=== PATIENT | female | born 1960 | race Caucasian/White ===

== ENCOUNTER → 2016-09-23 | Outpatient (CLI) | payer BC ==
[~2016-09-23] MED LIST: PENI-82 PO
--- NOTE | 2016-09-23 16:46 | MAMMOGRAPHY REPORT ---
BILATERAL DIGITAL SCREENING MAMMOGRAM TOMOSYNTHESIS WITH CAD: 09/23/2016 CLINICAL HISTORY: Routine screening. Patient has no complaints. TECHNIQUE: Breast tomosynthesis in addition to standard 2D mammography was performed. Current study was also evaluated with a Computer Aided Detection (CAD) system. COMPARISON: A previous screen film mammogram dated 01/22/2005. BREAST COMPOSITION: The tissue of both breasts is heterogeneously dense, which may obscure small ma sses. FINDINGS: There is possible architectural distortion in the 8:00 to 9:00 middle one third of the ri ght breast, for which additional spot compression tomosynthesis HD views and possibly ultrasound are recommended. No other suspicious mass, architectural distortion or cluster of microcalcifications is seen bilater ally. IMPRESSION: ACR BI-RADS CATEGORY 0: INCOMPLETE EVALUATION: NEED ADDITIONAL IMAGING EVALUATION The possible architectural distortion in the right breast needs additional evaluation. The patient will be called to schedule an appointment. Approximately 10% of breast cancers are not detected with mammography. A negative mammographic repor t should not delay biopsy if a clinically suggestive mass is present. Ligia Watson M.D. ay/:09/23/2016 16:32:56 History Faculty Member: Eun LACEY(Edith)(Jojo), [facility] letter sent: Addl Imaging 0 BI-RADS Code: ACR BI-RADS Category 0: Incomplete Evaluation: Need Additional Imaging Evaluation
== END | disposition home or self-care (01) ==
LOC: C.MAMM 14:45
PROVIDERS: ATTEND Family Medicine
DX: Z12.31 Encounter for screening mammogram for malignant neoplasm of breast (principal); R92.8 Other abnormal and inconclusive findings on diagnostic imaging of breast

== ENCOUNTER → 2016-10-02 | Outpatient (CLI) | payer BC ==
--- NOTE | 2016-10-03 07:31 | MAMMOGRAPHY REPORT ---
UNILATERAL RIGHT DIGITAL DIAGNOSTIC MAMMOGRAM TOMOSYNTHESIS AND TARGETED RIGHT ULTRASOUND: 10/02/2016 CLINICAL HISTORY: Callback from screening mammogram for possible right breast architectural distorti on. TECHNIQUE: Breast tomosynthesis in addition to standard 2D mammography was performed. Spot rosa elena lucius right CC and MLO 2-D and tomosynthesis images were obtained. COMPARISON: Comparison is made to exam dated: 09/23/2016 mammogram - [facility]. BREAST COMPOSITION: The tissue of the right breast is heterogeneously dense, which may obscure smal l masses. FINDINGS: The previously described possible architectural distortion seen within the right 8 to 9:0 0 breast effaces on the additional spot compression views and has the appearance of normal fibroglan dular tissue. No suspicious mass or persistent architectural distortion is seen on the additional v iews in this region. Targeted ultrasound was performed of the right 8 to 9:00 breast in the region of the questionable ar chitectural distortion. In the right breast at 9:00 periareolar region, there is an oval circumscri bed hypoechoic parallel solid mass which measures 6 x 4 x 6 mm. 2 coarse echogenic foci are seen wi thin the mass, suggestive of calcifications. On rereview of the mammograms, there are 2 coarse stephanie gn-appearing calcifications in the right 9:00 breast, which probably correspond with the internal ca lcifications seen on ultrasound, although no clear mass is seen associated with the calcifications o n the mammograms. 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 Given that is newly visual ized on imaging, recommend follow-up in 6 months. The option of biopsy was also discussed, however, we will opt for follow-up at this time. No sonographic correlate for the questionable architectura l distortion is seen. IMPRESSION: ACR-BI-RADS CATEGORY 3: PROBABLY BENIGN, TARGETED ULTRASOUND ACR-BI-RADS CATEGORY 3: IA OBABLY BENIGN 1. The questionable architectural distortion in the right 8 to 9:00 breast effaces on the additiona l views, without corresponding sonographic abnormality evident. The findings are benign and felt to represent normal fibroglandular tissue. 2. Incidentally noted hypoechoic circumscribed 6 mm mass in the right 9:00 breast, with 2 coarse be nign-appearing calcifications seen within the mass. The mass is probably benign and likely represen ts a degenerating fibroadenoma. Recommend follow-up ultrasound and possible diagnostic mammograms o f the right breast in 6 months to confirm stability, given that this mass is newly visualized on mini ging. The patient has been verbally notified of the results. Approximately 10% of breast cancers are not detected with mammography. A negative mammographic repor t should not delay biopsy if a clinically suggestive mass is present. Rena Chi M.D. ah/:10/02/2016 14:53:07 Field Research Assistant: Eun LACEY(Edith)(Jojo), [facility] letter sent: Follow Up Recommended 3 BI-RADS Code: ACR-BI-RADS Category 3: Probably Benign Ultrasound BI-RADS: ACR-BI-RADS Category 3: P robably Benign
== END | disposition home or self-care (01) ==
LOC: C.MAMM 14:08
PROVIDERS: ATTEND Family Medicine
DX: N64.9 Disorder of breast, unspecified (principal); N63 Unspecified lump in breast

== ENCOUNTER → 2016-11-21 | Outpatient (CLI) | payer BC ==
--- NOTE | 2016-11-21 12:08 | DIAGNOSTIC IMAGING REPORT ---
ABDOMINAL ULTRASOUND COMPLETE HISTORY: Upper abdominal pain.. COMPARISON: None. FINDINGS: Pancreas: The pancreatic head is obscured by overlying bowel gas. The remaining portions of the pancreas are within normal limits. Liver: A 1.6 cm left hepatic lobe cyst. Gallbladder: No gallbladder wall thickening. No gallstones. CBD: 3 mm. Kidneys: No hydronephrosis. Spleen: Normal in size. Aorta: Normal in caliber. IVC: Patent. IMPRESSION: 1. A 1.6 cm left hepatic lobe cyst. 2. Normal gallbladder. No gallstones. Electronically signed by: Mendez Ramirez M.D. 11/21/2016 12:07 PM Dictated Date/Time: 11/21/2016 12:05 PM
== END | disposition home or self-care (01) ==
LOC: C.ULTR 10:47
PROVIDERS: ATTEND Family Medicine
DX: R10.10 Upper abdominal pain, unspecified (principal); K76.89 Other specified diseases of liver

== ENCOUNTER 2017-02-12 10:28 | Emergency (ER) | payer BC ==
[~2017-02-12] VITALS: Ht 161.3 cm; Wt 56.7 kg
[2017-02-12 10:34] VITALS: TEMP 36.8; Ht 161.3 cm; Wt 56.7 kg
[2017-02-12 11:03] LABS: COMPLETE YES; EOS % 0.3 %; HEMATOCRIT 38.5 % (37-47); IG% 0.2 %; LYMPH % 8.3 %; LYMPH ABS # 0.77 K/uL (1.2-3.4); MEAN CELL VOLUME 86.1 fL (80-100); MEAN CORPUSCULAR HGB CONC 32.5 g/dl (32-36); MEAN PLATELET VOLUME 9.1 fL (7.4-10.4); MONO % 6.1 %; NEUT % 85.1 %; PLATELET COUNT 225 K/uL (130-400); RED BLOOD COUNT 4.47 M/uL (4.2-5.4); WHITE BLOOD COUNT 9.27 K/uL (4.8-10.8)
[2017-02-12 11:12] LABS: BUN/CREATININE RATIO 9.5 (10-20); CREATININE 0.74 mg/dl (0.60-1.20); POTASSIUM 3.6 mmol/L (3.5-5.1)
--- NOTE | 2017-02-12 11:35 | DIAGNOSTIC IMAGING REPORT ---
CT SCAN OF THE ABDOMEN AND PELVIS WITHOUT CONTRAST CLINICAL HISTORY: Abdominal pain with radiation of the right shoulder which occurred during colonoscopy. COMPARISON STUDY: Abdominal ultrasound dated 11/21/2016 TECHNIQUE: CT scan of the abdomen and pelvis was performed from the lung bases to the proximal femurs. Images are reviewed in the axial, sagittal, and coronal planes. IV contrast was not administered for this examination. CT DOSE: 427.14 mGycm FINDINGS: Lower chest: The heart is normal in size and configuration, without pericardial effusion. The lung bases and pleural spaces are clear. Liver: There is a 22 mm hepatic cyst versus visualization of the gallbladder. Gallbladder: Is unclear whether the 22 mm cystic lesion within the liver represents the gallbladder or hepatic cyst. Spleen: Normal in size and attenuation. Pancreas: Unremarkable. Adrenal glands: Unremarkable. Kidneys: The unenhanced kidneys are normal in size without hydronephrosis. There is no contour deforming renal mass lesion. No renal calculi are identified. Bowel: There is moderate gaseous distention of the colon. There are colonic air-fluid levels present. The cecum measures 7 cm. There are no transition zones indicate bowel obstruction Peritoneum: There is no intraperitoneal free air or abdominal ascites. Vasculature: The abdominal aorta is normal in course and caliber. Adenopathy: None. Pelvic viscera: The bladder, and pelvic viscera are unremarkable. Skeletal structures: No destructive osseous lesions are seen. IMPRESSION: 1. Examination limited due to the lack of intravenous and orally administered contrast 2. Moderate gaseous distention of the colon likely secondary to recent colonoscopy.. 3. No free intraperitoneal air. No pneumatosis. No evidence of portal venous gas. 4. No renal, ureteral, or bladder calculi identified. Electronically signed by: Solis Hurtado M.D. 02/12/2017 11:34 AM Dictated Date/Time: 02/12/2017 11:27 AM
[2017-02-12] MEDS ORDERED: PENI-82 PO (11:43)
--- NOTE | 2017-02-12 11:55 | DIAGNOSTIC IMAGING REPORT ---
CHEST ONE VIEW PORTABLE CLINICAL HISTORY: Abdominal pain following colonoscopy. COMPARISON STUDY: No previous studies for comparison. FINDINGS: The cardiac and mediastinal contours are normal. There is no evidence of focal pulmonary consolidation. There is no evidence of failure. No pleural effusions are visualized.[ There is gaseous distention of the bowel. There is colonic interposition. No definite free air is visualized. IMPRESSION: No active disease in the chest. Electronically signed by: Solis Hurtado M.D. 02/12/2017 11:53 AM Dictated Date/Time: 02/12/2017 11:53 AM
--- NOTE | 2017-02-12 12:10 | EMERGENCY ROOM VISIT NOTE ---
History Report prepared by Abby: Ivon Trujillo Under the Supervision of: Dr. Kit Lira D.O. First contact with patient: 10:41 Chief Complaint: ABDOMINAL PAIN Stated Complaint: ABD PAIN Nursing Triage Summary: pt presents via ALS from colonoscopy suite in [place] at the [facility] office per ALS patient just had colonoscopy and developed abdominal pain with radiation to her right shoulder per patient this was her routine colonoscopy with the colonoscopy she was given 1300 ML of fluid and propofol and lidocaine per patient her pain initially was a 10/10 and it is now a 3/10 History of Present Illness The patient is a 56 year old female who presents to the Emergency Room with complaints of 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 The patient had her first, routine colonoscopy this morning. She states that as soon as she woke up from anesthesia she developed severe abdominal pain that radiated into her right shoulder. She was brought to the ED by ambulance for further evaluation of her symptoms. The patient states that initially her pain was a 10/ 10 in severity, but she was given narcotics en route that helped to alleviate some of her pain. She rates her current pain as a 3/10. She denies any nausea or vomiting. Source of History: patient Onset: CREDENTIALING ANALYST Position: abdomen Symptom Intensity: 3/10 Quality: other (radiating) Timing: constant Modifying Factors (Worsening): other (colonoscopy) Modifying Factors (Relieving): narcotics Associated Symptoms: No nausea, No vomiting Review of Systems See HPI for pertinent positives & negatives. A total of 10 systems reviewed and were otherwise negative. Past Medical & Surgical Medical Problems: (1) Diabetes mellitus type 2, uncomplicated Family History No pertinent history stated. Social History Smoking Status: Never Smoker Marital Status: Housing Status: lives with significant other Current/Historical Medications Scheduled Penicillin V Potassium (Veetids), 500 MG PO DAILY Allergies Coded Allergies: Aspirin (Unverified Allergy, Unknown, UNKNOWN, 02/12/17) Ibuprofen (Unverified Allergy, Unknown, UNKNOWN, 02/12/17) Nitrates, Organic (Unverified Allergy, Unknown, UNKNOWN, 02/12/17) Sulfa Antibiotics (Unverified Allergy, Unknown, UNKNOWN, 02/12/17) Physical Exam Vital Signs Date Time Temp Pulse Resp B/P (MAP) Pulse Ox O2 Delivery O2 Flow Rate FiO2 02/12/17 10:34 36.8 60 16 104/58 100 Room Air Physical Exam CONSTITUTIONAL/VITAL SIGNS: Reviewed / noted above. GENERAL: Non-toxic in appearance. INTEGUMENTARY: Warm, dry, and [place]. HEAD: Normocephalic. EYES: without scleral icterus or trauma. ENT/OROPHARYNX: clear and moist. LYMPHADENOPATHY/NECK: Is supple without lymphadenopathy or meningismus. RESPIRATORY: Lungs clear and equal. CARDIOVASCULAR: Regular rate and rhythm. GI/ABDOMEN: Soft and mild diffuse abdominal discomfort. No organomegaly or pulsatile mass. No rebound or guarding. Normal bowel sounds. EXTREMITIES: Warm and well perfused. BACK: No CVA tenderness. NEUROLOGICAL: Intact without focal deficits. PSYCHIATRIC: normal affect. MUSCULOSKELETAL: Normally developed with good muscle tone. Medical Decision & Procedures ER Provider Diagnostic Interpretation: Radiology results as stated below per my review and radiologist interpretation: CHEST ONE VIEW PORTABLE CLINICAL HISTORY: Abdominal pain following colonoscopy. COMPARISON STUDY: No previous studies for comparison. FINDINGS: The cardiac and mediastinal contours are normal. There is no evidence of focal pulmonary consolidation. There is no evidence of failure. No pleural effusions are visualized.[ There is gaseous distention of the bowel. There is colonic interposition. No definite free air is visualized. IMPRESSION: No active disease in the chest. Electronically signed by: Solis Hurtado M.D. 02/12/2017 11:53 AM Dictated Date/Time: 02/12/2017 11:[address] SCAN OF THE ABDOMEN AND PELVIS WITHOUT CONTRAST CLINICAL HISTORY: Abdominal pain with radiation of the right shoulder which occurred during colonoscopy. COMPARISON STUDY: Abdominal ultrasound dated 11/21/2016 TECHNIQUE: CT scan of the abdomen and pelvis was performed from the lung bases to the proximal femurs. Images are reviewed in the axial, sagittal, and coronal planes. IV contrast was not administered for this examination. CT DOSE: 427.14 mGycm FINDINGS: Lower chest: The heart is normal in size and configuration, without pericardial effusion. The lung bases and pleural spaces are clear. Liver: There is a 22 mm hepatic cyst versus visualization of the gallbladder. Gallbladder: Is unclear whether the 22 mm cystic lesion within the liver represents the gallbladder or hepatic cyst. Spleen: Normal in size and attenuation. Pancreas: Unremarkable. Adrenal glands: Unremarkable. Kidneys: The unenhanced kidneys are normal in size without hydronephrosis. There is no contour deforming renal mass lesion. No renal calculi are identified. Bowel: There is moderate gaseous distention of the colon. There are colonic air-fluid levels present. The cecum measures 7 cm. There are no transition zones indicate bowel obstruction Peritoneum: There is no intraperitoneal free air or abdominal ascites. Vasculature: The abdominal aorta is normal in course and caliber. Adenopathy: None. Pelvic viscera: The bladder, and pelvic viscera are unremarkable. Skeletal structures: No destructive osseous lesions are seen. IMPRESSION: 1. Examination limited due to the lack of intravenous and orally administered contrast 2. Moderate gaseous distention of the colon likely secondary to recent colonoscopy.. 3. No free intraperitoneal air. No pneumatosis. No evidence of portal venous gas. 4. No renal, ureteral, or bladder calculi identified. Electronically signed by: Solis Hurtado M.D. 02/12/2017 11:34 AM Dictated Date/Time: 02/12/2017 11:27 AM Laboratory Results 02/12/17 10:35 Red Blood Count 4.47, Mean Corpuscular Volume 86.1, Mean Corpuscular Hemoglobin 28.0, Mean Corpuscular Hemoglobin Concent 32.5, Mean Platelet Volume 9.1, Neutrophils (%) (Auto) 85.1, Lymphocytes (%) (Auto) 8.3, Monocytes (%) (Auto) 6.1, Eosinophils (%) (Auto) 0.3, Basophils (%) (Auto) 0.0, Neutrophils # (Auto) 7.88, Lymphocytes # (Auto) 0.77, Monocytes # (Auto) 0.57, Eosinophils # (Auto) 0.03, Basophils # (Auto) 0.00 02/12/17 10:35 Test 02/12/17 10:35 White Blood Count 9.27 K/uL (4.8-10.8) Red Blood Count 4.47 M/uL (4.2-5.4) Hemoglobin 12.5 g/dL (12.0-16.0) Hematocrit 38.5 % (37-47) Mean Corpuscular Volume 86.1 fL (80-100) Mean Corpuscular Hemoglobin 28.0 pg (25-34) Mean Corpuscular Hemoglobin Concent 32.5 g/dl (32-36) Platelet Count 225 K/uL (130-400) Mean Platelet Volume 9.1 fL (7.4-10.4) Neutrophils (%) (Auto) 85.1 % Lymphocytes (%) (Auto) 8.3 % Monocytes (%) (Auto) 6.1 % Eosinophils (%) (Auto) 0.3 % Basophils (%) (Auto) 0.0 % Neutrophils # (Auto) 7.88 K/uL (1.4-6.5) Lymphocytes # (Auto) 0.77 K/uL (1.2-3.4) Monocytes # (Auto) 0.57 K/uL (0.11-0.59) Eosinophils # (Auto) 0.03 K/uL (0-0.5) Basophils # (Auto) 0.00 K/uL (0-0.2) RDW Standard Deviation 39.1 fL (36.4-46.3) RDW Coefficient of Variation 12.3 % (11.5-14.5) Immature Granulocyte % (Auto) 0.2 % Immature Granulocyte # (Auto) 0.02 K/uL (0.00-0.02) Anion Gap 11.0 mmol/L (3-11) Est Creatinine Clear Calc Drug Dose 72.6 ml/min Estimated GFR () 105.7 Estimated GFR (Non- 91.2 BUN/Creatinine Ratio 9.5 (10-20) Calcium Level 8.0 mg/dl (8.5-10.1) Total Bilirubin 0.8 mg/dl (0.2-1) Direct Bilirubin 0.2 mg/dl (0-0.2) Aspartate Amino Transf (AST/SGOT) 19 U/L (15-37) Alanine Aminotransferase (ALT/SGPT) 24 U/L (12-78) Alkaline Phosphatase 41 U/L (45-117) Total Protein 6.7 gm/dl (6.4-8.2) Albumin 3.3 gm/dl (3.4-5.0) Lipase 197 U/L (73-393) Laboratory results as stated above per my review. ECG Indication: back/shoulder pain Rate (beats per minute): 58 Rhythm: sinus bradycardia Findings: no acute ischemic change, no ectopy ED Course 1041: Previous medical records were reviewed. The patient was evaluated in room B4B. A complete history and physical examination was performed. 1212: I reassessed the patient at this time. She is feeling better and resting comfortably. I discussed the results and treatment plan with the patient. I answered all pertaining questions that she had. She expressed understanding and verbalized agreement. The patient will be discharged home. Medical Decision Differential considered: pancreatitis, hepatitis, or acute cholecystitis, AAA, UTI, pyelonephritis, kidney stones, appendicitis, diverticulitis, shingles, bowel obstruction mesenteric ischemia, intussusception,hernia, ovarian torsion, ruptured ovarian cyst. This is a 56-year-old female who presents to the ED with a chief complaint of abdominal pain after colonoscopy. The patient states that she had a colonoscopy this morning when she awoke she developed severe abdominal pain. She was sent here for evaluation. The patient states that her symptoms have improved and she did receive IV morphine and Zofran by EMS. The patient has some mild tenderness on exam. Her exam is otherwise unremarkable. A chest x- ray was negative for acute disease as was a CT scan of the abdomen and pelvis. There is no evidence of perforation or free air. CBC and complete metabolic panel were normal. Glucose was 216. She is diabetic. Lipase negative. The patient was told results the test. She did not require additional medication here. She is felt to be stable for discharge and outpatient follow-up and she was told that her sugar was high. Impression Primary Impression: Abdominal pain Additional Impression: Hyperglycemia Scribe Attestation The scribe's documentation has been prepared under my direction and personally reviewed by me in its entirety. I confirm that the note above accurately reflects all work, treatment, procedures, and medical decision making performed by me. Departure Information Dispostion Home / Self-Care Referrals Michelle Finn D.O. (PCP) Forms Call Back Authorization, HOME CARE DOCUMENTATION FORM, IMPORTANT VISIT INFORMATION Patient Instructions My [facility] [employer] Additional Instructions Blood sugar today was slightly elevated at 216. Additional testing did not show significant abnormalities with regards to her abdominal pain. Return for worsening or new symptoms. Anticipate improvement of symptoms over the next 24 hours. Follow-up with PCP if not improved. Problem Qualifiers Primary Impression: Abdominal pain Abdominal location: generalized Qualified Codes: R10.84 - Generalized abdominal pain
[2017-02-12 12:44] VITALS: BP 98/51; PULSE 58; O2SAT 97
== END 2017-02-12 12:45 | disposition home or self-care (01) ==
LOC: EDBD 10:28 → C.EDB 10:30
DX: R10.84 Generalized abdominal pain (principal); E11.65 Type 2 diabetes mellitus with hyperglycemia

== ENCOUNTER → 2017-04-01 | Outpatient (CLI) | payer BC ==
--- NOTE | 2017-04-01 13:43 | MAMMOGRAPHY REPORT ---
UNILATERAL RIGHT DIGITAL DIAGNOSTIC MAMMOGRAM TOMOSYNTHESIS WITH CAD AND TARGETED RIGHT ULTRASOUND: CLINICAL HISTORY: 56-year-old woman presents for follow-up of the right breast to reevaluate a hypoec hoic solid benign-appearing mass that was newly visualized on ultrasound. TECHNIQUE: Right breast tomosynthesis in addition to standard 2D mammography was performed. Current s virgil was also evaluated with a Computer Aided Detection (CAD) system. COMPARISON: Comparison is made to exams dated: 10/02/2016 ultrasound, 10/02/2016 mammogram, and mammogram - [facility]. BREAST COMPOSITION: The tissue of the right breast is heterogeneously dense, which may obscure small masses. FINDINGS: There are 2 stable adjacent benign coarse calcifications in the 9:00 anterior right breast. No focal area of architectural distortion, obvious new mass or suspicious microcalcifications are s een mammographically. Targeted ultrasound was performed in the 9:00 right breast to reevaluate the circumscribed parallel h ypoechoic solid mass with associated calcification. In the 9:00 periareolar right breast, the mass i s again identified and appears similar to the prior ultrasound. It currently measures 6.4 x 3.9 x 5. 3 mm, and is not significantly changed comparing to the prior exam at which time it measured 6.4 x 4. 3 x 6.2 mm. This most likely represent a degenerating fibroadenoma, but another 6 month follow-up ta rgeted right breast ultrasound is recommended to ensure at least one year stability. IMPRESSION: ACR-BI-RADS CATEGORY 3: PROBABLY BENIGN, TARGETED ULTRASOUND ACR-BI-RADS CATEGORY 3: PRO BABLY BENIGN 1. Stable sonographic appearance of a circumscribed hypoechoic benign appearing mass with associated coarse calcification in the 9:00 periareolar right breast, that most likely represents a degeneratin g fibroadenoma. Another 6 month follow-up targeted ultrasound is recommended to ensure at least one year stability. 2. Annual bilateral screening mammography will also be due at that time. These results and recommendations were discussed with the patient at the time of the exam. Approximately 10% of breast cancers are not detected with mammography. A negative mammographic report should not delay biopsy if a clinically suggestive mass is present. Ligia Watson M.D. ay/:04/01/2017 13:16:02 Boom Crane Operator: Annabelle LACEY(R)(M), [facility] letter sent: Follow Up Recommended 3 BI-RADS Code: ACR-BI-RADS Category 3: Probably Benign Ultrasound BI-RADS: ACR-BI-RADS Category 3: Pr obably Benign
== END | disposition home or self-care (01) ==
LOC: C.MAMM 12:30
PROVIDERS: ATTEND Family Medicine
DX: R92.2 Inconclusive mammogram (principal); N63 Unspecified lump in breast

== ENCOUNTER → 2017-10-08 | Outpatient (CLI) | payer BC ==
--- NOTE | 2017-10-09 13:22 | MAMMOGRAPHY REPORT ---
BILATERAL DIGITAL DIAGNOSTIC MAMMOGRAM TOMOSYNTHESIS WITH CAD AND TARGETED RIGHT ULTRASOUND: 10/08/2017 CLINICAL HISTORY: Six-month follow-up of right breast mass. Due for annual mammography of the left b reast. The patient reports no current complaints. TECHNIQUE: Breast tomosynthesis in addition to standard 2D mammography was performed. Current study was also evaluated with a Computer Aided Detection (CAD) system. Bilateral CC and MLO 2-D and tomosy nthesis images were obtained. COMPARISON: Comparison is made to exams dated: 04/01/2017 mammogram, 04/01/2017 ultrasound, 10/02/2016 ult rasound, 10/02/2016 mammogram, and 09/23/2016 mammogram - [facility]. BREAST COMPOSITION: The tissue of both breasts is heterogeneously dense, which may obscure small mas ses. FINDINGS: Again noted are 2 coarse adjacent popcorn calcifications in the right 9:00 breast, stable dating back to the March 2017 exam. The remainder of both breasts are also stable mammographically, without suspicious masses, calcifications, or areas of architectural distortion noted. Targeted ultrasound was performed of the area of the previously seen right breast mass. In the right breast at 9:00 periareolar region, again noted is an oval circumscribed hypoechoic benign-appearing mass which measures 7 x 7 x 4 mm. Coarse echogenic foci are seen within the mass, which correspond w ith the calcifications seen mammographically. The mass is not significantly changed in size dating b ack to at least the October 2016 exam. Given the stability and given the coarse calcifications seen within the mass, the mass is benign and compatible with a degenerating fibroadenoma. IMPRESSION: ACR BI-RADS CATEGORY 2: BENIGN, TARGETED ULTRASOUND ACR BI-RADS CATEGORY 2: BENIGN Stable size and appearance of a hypoechoic 7 mm mass in the right 9:00 periareolar breast, which cont ains coarse calcifications and is benign and compatible with a degenerating fibroadenoma. There is n o mammographic or targeted sonographic evidence of malignancy. A 1 year screening mammogram is recomm ended. The patient has been verbally notified of the results. Approximately 10% of breast cancers are not detected with mammography. A negative mammographic report should not delay biopsy if a clinically suggestive mass is present. Rena Chi M.D. ah/:10/08/2017 12:00:41 Furnace Fitter: Annabelle LACEY(R)(M), [facility] letter sent: Normal /2 BI-RADS Code: ACR BI-RADS Category 2: Benign Ultrasound BI-RADS: ACR BI-RADS Category 2: Benign
== END | disposition home or self-care (01) ==
LOC: C.MAMM 11:15
PROVIDERS: ATTEND Family Medicine
DX: R92.2 Inconclusive mammogram (principal); N63.10 Unspecified lump in the right breast, unspecified quadrant